=== PATIENT | male | born 1965 | race Asian ===

== ENCOUNTER 2018-09-29 19:55 | Emergency (ER) | payer OTHER ==
[~2018-09-29] VITALS: Ht 180.3 cm; Wt 88.5 kg
[2018-09-29 21:05] LABS: PLATELET COUNT 336 K/uL (142-355)
[2018-09-29 22:01] LABS: POTASSIUM 5.6 mmol/L (3.6-5.2)
[2018-09-30 02:42] VITALS: BP 137/79; TEMP 98.3
== END 2018-09-30 02:55 | disposition short-term general hospital (02) ==
LOC: ED 19:55
PROVIDERS: Emergency Medicine
PROC: 30233N1 Transfusion of Nonautologous Red Blood Cells into Peripheral Vein, Percutaneous Approach (ICD-10-PCS; principal; 2018-09-29)
DX: C22.9 Malignant neoplasm of liver, not specified as primary or secondary (principal); J90 Pleural effusion, not elsewhere classified; D64.9 Anemia, unspecified
CPT/HCPCS: 36415; 36430; 80053; 81000; 82150; 82272; 83605; 83690; 83735; 84484; 85007; 85027; 86850; 86900; 86901; 86922; 87040; 87088; 94664; 96360; 96365; 96375; 99285; J0696; J2270; J2405; P9016